=== PATIENT | male | born 1965 | race Caucasian/White ===

== ENCOUNTER 2016-04-21 15:29 | Emergency (ER) | payer MEDICARE, OTHER ==
--- NOTE | 2016-04-21 16:07 | ED ---
General Adult HPI - General Chief complaint: Back Pain/Injury Stated complaint: Fall/Back Pain Time Seen by Provider: 04/21/16 15:44 Source: patient, RN notes reviewed Mode of arrival: ambulatory Limitations: no limitations - History of Present Illness Initial comments: Is a 50-year-old male presents with lumbar back pain after a fall today. Patient states he slipped on ice and landed on the right side lower back. Patient states he has chronic back pain from past surgeries, but states the pain in his lumbar spine has been worse after today's fall. Patient denies any change in bowel or bladder function, loss of sensation to the saddle area or numbness/tingling/weakness/radicular pain to the bilateral lower extremities. Patient states he had a sharp pain along the lateral aspect of the right thigh when he fell but this has resolved. Patient is able to ambulate. patient denies hip pain. Patient states he is already on Percocet 4 times per day and this has not helped the pain. Patient denies any recent fever, chills, shortness breath, chest pain, abdominal pain, nausea/vomiting/diarrhea, hematuria, headache, or visual changes, or any other complaints. - Related Data Home Medications Medication Instructions Recorded Confirmed oxyCODONE-APAP 10-325MG [Percocet 1 tab PO QID 04/21/16 04/21/16 10-325 mg] Allergies Allergy/AdvReac Type Severity Reaction Status Date / Time codeine Allergy Itching Verified 04/21/16 15:39 Review of Systems ROS Statement: Those systems with pertinent positive or pertinent negative responses have been documented in the HPI. ROS Other: All systems not noted in ROS Statement are negative. Past Medical History Additional Past Medical History / Comment(s): vitamin d deficiency, chronic back pain History of Any Multi-Drug Resistant Organisms: None Reported Additional Past Surgical History / Comment(s): spinal fusion Past Psychological History: No Psychological Hx Reported Smoking Status: Current every day smoker Past Alcohol Use History: None Reported Past Drug Use History: None Reported General Exam - General Exam Comments Initial Comments: General: The patient is awake and alert, in no distress, and does not appear acutely ill. Neck: The neck is supple, there is no tenderness or JVD. No cervical midline tenderness. Cardiovascular: There is a regular rate and rhythm. No murmur, rub or gallop is appreciated. Respiratory: Lungs are clear to auscultation, respirations are non-labored, breath sounds are equal. No wheezes, stridor, rales, or rhonchi. Musculoskeletal: There is tenderness to palpation over the lumbar spinous processes right-sided sacral area and to the right side lumbar paraspinal muscles. There is no tenderness to palpation of the right hip Full range of motion, strength 5/5 and Sensation intact. Radial pulses 2+ bilaterally. Capillary refill is less than 2 seconds. Neurological: A&O x 3. CN II-XII intact, There are no obvious motor or sensory deficits. Coordination appears grossly intact. Speech is normal. Skin: Skin is warm and dry and no rashes or lesions are noted. Psychiatric: Normal mood and affect. Limitations: no limitations Course Vital Signs 04/21/16 15:33 Temperature 98.0 F Pulse Rate 100 Respiratory 20 Rate Blood Pressure 164/97 O2 Sat by Pulse 100 Oximetry Medical Decision Making - Medical Decision Making is a 50-year-old male presents with acute exacerbation of chronic back pain after a fall. On physical exam patient is neurologically intact and there is tenderness to palpation over the lumbar spinous processes right-sided sacral area and to the right side lumbar paraspinal muscles. There is no tenderness to palpation of the right hip. Full range of motion, strength 5/5 and Sensation intact. Radial pulses 2+ bilaterally. Capillary refill is less than 2 seconds. X-rays of the lumbar spine and sacrum/coccyx were done and review showing: #1 Postsurgical changes of L2 through L5 posterior and interbody fusion without evident complication. No vertebral compression collapse. #2 no angulated or displaced sacrococcygeal fracture. Discussed results with patient. Discussed that the patient wiill receive Toradol and Norflex in the EC today. Discussed over the counter ibuprofen or Aleve in addition to his normal pain medication of Percocet. Discussed return parameters.Discussed that patient should follow up with PCP in one to 2 days or return to the [facility] for any worsening symptoms or for any further concerns. Patient was receptive to this plan and patient will be discharged home. Disposition Clinical Impression: Acute exacerbation of chronic low back pain, Fall Disposition: HOME SELF-CARE Condition: Good Instructions: Acute Low Back Pain (ED) Additional Instructions: Please use medication as discussed. Please use warm heating pads to the area. Please follow-up with family doctor in the next 2 days of symptoms have not improved. Please return to emergency room if the symptoms increase or worsen or for any other concerns. Time of Disposition: 16:40
--- NOTE | 2016-04-21 16:30 | XR ---
EXAMINATION TYPE: XR lumbar spine 2 or 3V, Three-view sacrum and coccyx DATE OF EXAM: 04/21/2016 4:18 PM COMPARISON: NONE HISTORY: 50-year-old male with pain after slip and fall FINDINGS: Lumbar spine: Postsurgical changes of L2-L5 posterior and interbody fusion. There is mild degenerative disc intersp colleen narrowing above the fusion at L1-L2. The orthopedic hardware remains uncomplicated in appearance. Vertebral body heights are preserved. No retropulsion of the interbody devices. Sacrum coccyx: SI joints appear symmetric and intact. Small delineation to the arcuate lines of the sacrum. Pubic sy mphysis is congruent and intact. No displaced or angulated sacral or coccygeal fracture. IMPRESSION: 1. Postsurgical changes of L2-L5 posterior and interbody fusion without evident complication. No vert ebral compression collapse. 2. No angulated or displaced sacrococcygeal fracture.
[2016-04-21] MEDS ORDERED: ORPHENADRINE 30 MG/ML 2 ML VIAL IM STA (16:36)
[2016-04-21] MEDS ORDERED: KETOROLAC 60 MG/2 ML VIAL IM STA (16:36)
[2016-04-21 16:58] VITALS: BP 158/89; PULSE 95; RESP 18; TEMP 98.1
== END 2016-04-21 16:56 | disposition home or self-care (01) ==
LOC: EC 15:29
DX: G89.29 Other chronic pain (principal); M54.5 Low back pain; F17.200 Nicotine dependence, unspecified, uncomplicated; W00.0XXA Fall on same level due to ice and snow, initial encounter; Z79.899 Other long term (current) drug therapy; Z88.5 Allergy status to narcotic agent
CPT/HCPCS: 72100; 72220; 96372 ×2; 99284; J2360; J1885

== ENCOUNTER 2018-01-07 06:35 | Day surgery (SDC) | payer MEDICARE, OTHER ==
[2018-01-06 09:25] VITALS: BMI 28.8
[~2018-01-07 06:35] MED LIST: DEXAMETHASONE SOD PHOSPHATE 10 MG/ML 1 ML VIAL IV ONE; HEPARIN SODIUM,PORCINE 5,000 UNIT/ML 1 ML VIAL SQ ONE; LIDOCAINE 1% 20 ML VIAL (10MG/ML) FOR IV START INTRADERMA PRN; MIDAZOLAM 2 MG/2 ML VIAL IV PRN; ONDANSETRON 4 MG/2 ML VIAL IVP ONE; SCOPOLAMINE 1.5MG/72HR PATCH TRANSDERM ONE; ceFAZolin IN SWFI 2 GM/20 ML SYRINGE IVP ONE
[2018-01-07] MEDS: LACTATED RINGERS 1,000 ML IV SCH ×2 (07:23→07:30)
--- NOTE | 2018-01-07 07:53 | P.GSHP ---
History of Present Illness H&P Date: 01/07/18 Chief Complaint: Left inguinal hernia This a 52-year-old male who's had complaints of left we will pain. Patient was seen in the office evaluated and found have a left inguinal hernia. Patient rents today for laparoscopic robotic-assisted repair. Past Medical History Past Medical History: Skin Disorder Additional Past Medical History / Comment(s): chronic back pain, rosacea History of Any Multi-Drug Resistant Organisms: MRSA Date of last positivie culture/infection: 2002 MDRO Source:: left thigh Past Surgical History: Back Surgery Additional Past Surgical History / Comment(s): spinal fusion Past Anesthesia/Blood Transfusion Reactions: No Reported Reaction Smoking Status: Current every day smoker - Past Family History Sister(s) Family Medical History: Cancer Medications and Allergies Home Medications Medication Instructions Recorded Confirmed Type Vitamin B Complex 1 each PO DAILY 01/06/18 01/07/18 History Allergies Allergy/AdvReac Type Severity Reaction Status Date / Time codeine Allergy Itching Verified 01/07/18 07:14 Surgical - Exam Vital Signs Temp Pulse Resp BP Pulse Ox 97.4 F L 69 18 136/81 100 01/07/18 07:12 01/07/18 07:12 01/07/18 07:12 01/07/18 07:12 01/07/18 07:12 - General well developed, no distress - Eyes PERRL - ENT normal pinna - Neck no masses - Respiratory normal expansion - Cardiovascular Rhythm: regular - Abdomen Abdomen: soft, non tender Hernia: inguinal (Reducible left inguinal hernia) Assessment and Plan Assessment: Left inguinal hernia. We'll perform laparoscopic robotic-assisted repair.
[2018-01-07] MEDS ORDERED: NEOSTIGMINE 1 MG/ML 10 ML VIAL ONE (08:02)
[2018-01-07] MEDS ORDERED: fentaNYL (PF) 50 MCG/ML 2 ML AMP ONE (08:02)
[2018-01-07] MEDS ORDERED: LIDOCAINE 1% INJ 10MG/ML (20 ML MDV) ONE (08:02)
[2018-01-07] MEDS ORDERED: ROCURONIUM BROMIDE 10 MG/ML 10 ML VIAL IV ONE (08:02)
[2018-01-07] MEDS ORDERED: GLYCOPYRROLATE 0.2 MG/ML 2 ML VIAL ONE (08:02)
[2018-01-07] MEDS ORDERED: SUCCINYLCHOLINE CHLORIDE 100 MG/5 ML SYR IV ONE (08:02)
[2018-01-07] MEDS ORDERED: PHENYLEPHRINE-0.9% NACL SYG 1 MG/10 ML SYRINGE ONE (08:02)
[2018-01-07] MEDS ORDERED: ePHEDrine SULFATE/0.9% NACL/PF 50 MG/5 ML SYRINGE IV ONE (08:02)
[2018-01-07] MEDS ORDERED: PROPOFOL 10 MG/ML 20 ML VIAL IV ONE (08:02)
[2018-01-07] MEDS ORDERED: HYDROmorphone (PF) 1 MG/ML ONE (08:02)
[2018-01-07] MEDS ORDERED: MIDAZOLAM 2 MG/2 ML VIAL ONE (08:02)
[2018-01-07] MEDS ORDERED: KETOROLAC 30 MG/ML 1 ML VIAL ONE (08:02)
[2018-01-07] MEDS ORDERED: BUPIVACAIN-EPI 0.25%-1:200,000 30 ML VIAL SQ ONE (08:54)
[2018-01-07 09:41] VITALS: TEMP 97.3
[2018-01-07] MEDS: fentaNYL (PF) 50 MCG/ML 2 ML AMP IVP ONE ×2 (09:41→09:46)
[2018-01-07] MEDS: HYDROmorphone 0.5 MG/0.5 ML SYRINGE IVP PRN ×2 (09:51→09:57)
[2018-01-07 10:09] VITALS: RESP 18
[2018-01-07] MEDS ORDERED: HYDROcodone/APAP 7.5-325MG 1 EACH TAB PO ONE (10:40)
[2018-01-07 11:44] VITALS: BP 130/82; PULSE 76
--- NOTE | 2018-01-17 13:00 | P.OP ---
Date of Procedure: 01/07/18 Preoperative Diagnosis: Left inguinal hernia Postoperative Diagnosis: Left internal hernia Procedure(s) Performed: Laparoscopic robotic-assisted repair of left inguinal hernia Anesthesia: EVONNE Surgeon: Lane Higginbotham Estimated Blood Loss (ml): 5 Pathology: none sent Condition: stable Disposition: PACU Description of Procedure: The patient was placed on the operating table in the supine position. The patient received general anesthesia. The patient's abdomen was prepped and draped in usual sterile fashion. The skin was anesthetized 1% local Xylocaine at the incision sites. Using an 11 blade a skin incision was made at the umbilicus. The fascia was grasped with a [place] and then the peritoneal cavity was entered with the Veress needle. Position of the Veress needle was confirmed with a positive drop test. After adequate insufflation a 5 mm trocar was placed into the peritoneal cavity. The Laparoscope was placed the peritoneal cavity. And a robotic 8 mm trocar was placed in the right lateral position and then another 8 mm robotic trochars placed in the left lateral position. The original 5 mm trocar was exchanged for a 12 mm trocar. The patient was placed in reverse Trendelenburg and then the patient was docked to the robot. Next the peritoneum over top of the hernia was incised and then using blunt and sharp dissection and electrocautery the hernia sac was dissected free from the floor of the inguinal canal. The hernia sac was completely reduced into the peritoneal cavity. And then using the [employer] instructor mesh the hernia was repaired. The peritoneum was then sutured with 2-0V lock suture. The patient was then undocked the robot. The needle was withdrawn from the peritoneal cavity. The umbilical trocar site was closed with 0 Ethibond suture. The skin was closed interrupted 3-0 Monocryl suture. Dermabond dressing was applied. Patient was sent to recovery in stable condition.
== END 2018-01-07 12:00 | disposition home or self-care (01) ==
LOC: OR 06:35
PROVIDERS: ATTEND Surgery
DX: K40.90 Unilateral inguinal hernia, without obstruction or gangrene, not specified as recurrent (principal); L71.9 Rosacea, unspecified; M54.9 Dorsalgia, unspecified; G89.29 Other chronic pain; F17.210 Nicotine dependence, cigarettes, uncomplicated; Z86.14 Personal history of Methicillin resistant Staphylococcus aureus infection; Z98.1 Arthrodesis status; Z88.5 Allergy status to narcotic agent
CPT/HCPCS: 49650; C1781; J2250; J1644; J1100; J2710; J2405; J2001; J3010; J1885; J1170 ×2; J2370; J0330; J2704; J0690

== ENCOUNTER 2018-01-13 11:45 | Emergency (ER) | payer MEDICARE, OTHER ==
[2018-01-13 11:55] VITALS: RESP 18; TEMP 98.1
[2018-01-13] MEDS ORDERED: MORPHINE SULFATE 2 MG/ML SYRINGE IM STA (13:02)
--- NOTE | 2018-01-13 13:22 | ED ---
Recheck HPI - General Chief Complaint: Recheck/Abnormal Lab/Rx Stated Complaint: post surg pain Time Seen by Provider: 01/13/18 12:47 Source: patient Mode of arrival: ambulatory Limitations: no limitations - History of Present Illness Initial Comments: 52-year-old male presenting for chief complaint of bruising of the testicles and mild swelling. Patient states that on 01/07/2018 he had a left-sided inguinal hernia repair performed Laproscopically by Dr. Higginbotham. Patient states that later on Saturday he noticed blackening of the base the penis and testicles as well as moderate discomfort in testicles patient states that he presented to the emergency department Saturday for continued discomfort in the testicles however he left without being seen due to wait time. Patient does have an appointment tomorrow with Dr. Higginbotham in office, he was told to go to his primary care provider for evaluation if he had concerns. Patient states that the pain has been steady and continuous dull aching since Saturday. He's been taking [place] 7.5 for pain management which is helped minimally. Patient did state that the darkening has been improving since yesterday. Patient denies any abdominal pain, nausea, vomiting, fever, chills, redness at the surgical sites, pain out of proportion. Patient states he thinks this may be a normal finding for one make sure she presents today for evaluation. Patient denies any recent fever, chills, shortness of breath, chest pain, back pain, abdominal pain, nausea or vomiting, numbness or tingling, dysuria or hematuria, constipation or diarrhea, headaches or visual changes, or any other complaints. - Related Data Home Medications Medication Instructions Recorded Confirmed Vitamin B Complex 1 cap PO DAILY 01/06/18 01/13/18 Previous Rx's Medication Instructions Recorded Docusate [Colace] 100 mg PO BID #20 capsule 01/07/18 HYDROcodone/APAP 7.5-325MG [[place] 1 tab PO Q4H PRN 3 Days #18 tab 01/07/18 7.5-325] Allergies Allergy/AdvReac Type Severity Reaction Status Date / Time codeine Allergy Itching Verified 01/13/18 13:06 Review of Systems ROS Statement: Those systems with pertinent positive or pertinent negative responses have been documented in the HPI. ROS Other: All systems not noted in ROS Statement are negative. Constitutional: Denies: fever, chills ENT: Denies: ear pain, throat pain Respiratory: Denies: cough, dyspnea, wheezes, hemoptysis, stridor Cardiovascular: Denies: chest pain, palpitations Gastrointestinal: Denies: abdominal pain, nausea, vomiting, diarrhea, constipation Genitourinary: Reports: testicular pain (bruising and swelling). Denies: urgency, dysuria, frequency, hematuria Skin: Denies: rash, lesions Neurological: Denies: headache, weakness, numbness, paresthesias, confusion, abnormal gait Past Medical History Past Medical History: Skin Disorder Additional Past Medical History / Comment(s): chronic back pain, rosacea History of Any Multi-Drug Resistant Organisms: MRSA Date of last positivie culture/infection: 2002 MDRO Source:: left thigh Past Surgical History: Back Surgery, Hernia Repair Additional Past Surgical History / Comment(s): spinal fusion Past Anesthesia/Blood Transfusion Reactions: No Reported Reaction Past Psychological History: No Psychological Hx Reported Smoking Status: Current every day smoker Past Alcohol Use History: None Reported Past Drug Use History: None Reported - Past Family History Sister(s) Family Medical History: Cancer General Exam - General Exam Comments Initial Comments: General: The patient is awake and alert, in no distress, and does not appear acutely ill. Eye: Pupils are equal, round and reactive to light, extra-ocular movements are intact. No nystagmus. There is normal conjunctiva bilaterally. No signs of icterus. Ears, nose, mouth and throat: There are moist mucous membranes and no oral lesions. Neck: The neck is supple, there is no tenderness or JVD. Cardiovascular: There is a regular rate and rhythm. No murmur, rub or gallop is appreciated. Respiratory: Lungs are clear to auscultation, respirations are non-labored, breath sounds are equal. No wheezes, stridor, rales, or rhonchi. Gastrointestinal: 4 small 2cm incisions, non erythematous, warm to touch no drainage. No signs of infection. Soft, non-distended, non-tender abdomen without masses or organomegaly noted. There is no rebound or guarding present. Bowel sounds are unremarkable. SEE EXAM. Musculoskeletal: Normal ROM, no tenderness. Strength 5/5. Sensation intact. Pulses equal bilaterally 2+. Neurological: A&O x 3. CN II-XII intact, There are no obvious motor or sensory deficits. Coordination appears grossly intact. Speech is normal. Skin: Skin is warm and dry and no rashes or lesions are noted. Psychiatric: Cooperative, appropriate mood & affect, normal judgment. Limitations: no limitations exam: Present: testicular tenderness (mild testicular tenderness to palpation ), scrotal swelling (very mild scrotal swelling), vertical testicular lie, circumcision, other (ecchymosis of testicular b/l). Absent: urethral discharge External exam: Present: ecchymosis, other. Absent: lesions, lacerations Expanded Male exam: Absent: phimosis, paraphimosis, penile swelling, lesions exam: Testicular Tenderness: Left, Right (mild), Testicular Swelling: Left, Right (mild), Cremasteric Reflex Present: Left, Right Course Vital Signs 01/13/18 01/13/18 01/13/18 11:51 13:16 15:03 Temperature 98.1 F Pulse Rate 106 H 89 76 Respiratory 18 18 18 Rate Blood Pressure 131/81 132/95 143/90 O2 Sat by Pulse 97 96 97 Oximetry Medical Decision Making - Medical Decision Making PE consistent with normal postoperative changes from inguinal hernia repair. No concern for torsion, surgical site infection at this time. Pt appears comfortable and stated that he felt it probably was a normal finding he just wanted to be evaluated just in case. Pt was given 2mg morphine IM stating he has tolerated it in the past and because he states norco does not help with discomfort much. Testicular US WNL no evidence of torsion/hematoma there is hydrocele this most likely postoperative. Case discussed with Dr. Canela who agrees with impression. Pt was instructed to f/u with both primary care provider and Dr. Higginbotham as scheduled tmrw. If pt has worsening discoloration, fever, chills, erythema or worsening/pain out of proportion he is to return to the ED. patient agrees with plan. He verbalized understanding of return parameters. Patient discharged in stable condition. Disposition Clinical Impression: Hydrocele, acquired, Bruise of testicle, nontraumatic Disposition: HOME SELF-CARE Condition: Good Instructions: Hydrocele (ED) Additional Instructions: Please use home medication as discussed. Please follow-up as scheduled with surgeon tomorrow and primary care provider in the 2-3 days. Please return to emergency room if the symptoms increase or worsen or for any other concerns. Is patient prescribed a controlled substance at d/c from ED?: No Referrals: Jagdish Han DO [Primary Care Provider] - 1-[address] Higginbotham MD [STAFF PHYSICIAN] - 1-2 days Time of Disposition: 15:10
--- NOTE | 2018-01-13 14:54 | US ---
EXAMINATION TYPE: US scrotum with doppler. Grayscale and color Doppler Duplex imaging performed of t bernadette scrotum. DATE OF EXAM: 01/13/2018 COMPARISON: NONE CLINICAL HISTORY: Pain. EXAM MEASUREMENTS: TESTICLES: Right Testicle: 4.5 x 2.1 x 3.0 cm Left Testicle: 4.1 x 1.9 x 2.7 cm EPIDIDYMIS HEAD: Right Epididymis: 1.2 cm, small cyst noted at .1cm Left Epididymis: 1.1 cm Doppler performed to assess for testicular vascularity; good bilateral color flow and waveforms are s een. There is no evidence of testicular torsion. Presence of hydroceles: on left measuring 3.5 x 1.5 x 2.0cm Presence of varicoceles: no Very tiny epididymal cysts present on the right measuring 0.1 cm. IMPRESSION: 1. Left-sided hydrocele.
[2018-01-13 15:05] VITALS: BP 143/90; PULSE 76
== END 2018-01-13 15:15 | disposition home or self-care (01) ==
LOC: EC 11:45
DX: N43.3 Hydrocele, unspecified (principal); F17.200 Nicotine dependence, unspecified, uncomplicated; Z88.5 Allergy status to narcotic agent; Z86.14 Personal history of Methicillin resistant Staphylococcus aureus infection; Z98.890 Other specified postprocedural states
CPT/HCPCS: 93975; 76870; 99283; 96372; J2270

== ENCOUNTER → 2018-05-30 | Outpatient (CLI) | payer MEDICARE, OTHER ==
--- NOTE | 2018-05-30 17:42 | CT ---
EXAMINATION TYPE: CT pelvis w con DATE OF EXAM: 05/30/2018 COMPARISON: None HISTORY: inguinal hernia, left sided groin pain CT DLP: 741.2 mGycm Automated exposure control for dose reduction was used. CONTRAST: Performed with IV Contrast, patient injected with 100 mL of Isovue 300. FINDINGS: There is a small fat-containing left inguinal hernia. Tiny fat-containing right inguinal hernia. No i nflammatory changes. Bladder has a normal appearance. No free fluid. Diverticulosis of the colon. Visualized bowel gas pat tern nonspecific. Postsurgical change and degenerative change vertebral column. Aorta of normal caliber with atherosclerotic changes. Bilateral foraminal encroachment L4-5 and L5-S1 . IMPRESSION: SMALL FAT-CONTAINING INGUINAL HERNIA WITH NO INFLAMMATORY CHANGES. DEGENERATIVE AND POSTSURGICAL CHANGES INVOLVING THE VERTEBRAL COLUMN WITH FORAMINAL ENCROACHMENT INVO LVING THE LOWER LUMBAR SPINE.
== END | disposition home or self-care (01) ==
LOC: RADCTMAIN 15:17
PROVIDERS: ATTEND Surgery
DX: K40.90 Unilateral inguinal hernia, without obstruction or gangrene, not specified as recurrent (principal)
CPT/HCPCS: 72193; Q9967

== ENCOUNTER 2018-06-19 06:19 | Day surgery (SDC) | payer MEDICARE, OTHER ==
[2018-06-13 17:19] VITALS: BMI 28.4
[~2018-06-19 06:19] MED LIST changes: +LACTATED RINGERS 1,000 ML IV SCH; -MIDAZOLAM 2 MG/2 ML VIAL IV PRN; +fentaNYL (PF) 50 MCG/ML 2 ML AMP IV PRN
[2018-06-19] MEDS ORDERED: fentaNYL (PF) 50 MCG/ML 2 ML AMP IV ONE (07:14)
[2018-06-19] MEDS ORDERED: MIDAZOLAM 2 MG/2 ML VIAL IV ONE (07:14)
--- NOTE | 2018-06-19 07:53 | P.GSHP ---
History of Present Illness H&P Date: 06/19/18 Chief Complaint: Recurrent incarcerated left inguinal hernia This is a 53-year-old male who presents today for open repair of recurrent incarcerated left internal hernia. Patient is has developed a tender mass in his left groin. He has a previous history of inguinal hernia repair. Past Medical History Past Medical History: Musculoskeletal Disorder, Skin Disorder Additional Past Medical History / Comment(s): Chronic back pain. MINOR Rosacea. REOCCURING LT ING HERNIA. History of Any Multi-Drug Resistant Organisms: MRSA Date of last positivie culture/infection: 2002 MDRO Source:: left thigh Past Surgical History: Back Surgery, Hernia Repair Additional Past Surgical History / Comment(s): Spinal fusion. LT ING HERNIA 01/07/18. Past Anesthesia/Blood Transfusion Reactions: No Reported Reaction Smoking Status: Current every day smoker - Past Family History Sister(s) Family Medical History: Cancer Medications and Allergies Home Medications Medication Instructions Recorded Confirmed Type Acetaminophen [Tylenol] 325 - 650 mg PO Q4H PRN 06/13/18 06/19/18 History Vitamin B-1 (Unknown Dose) 1 tab PO DAILY 06/13/18 History Allergies Allergy/AdvReac Type Severity Reaction Status Date / Time codeine Allergy Itching Verified 06/13/18 17:04 Surgical - Exam Vital Signs Temp Pulse Resp BP Pulse Ox 97.8 F 69 16 116/77 97 06/19/18 06:59 06/19/18 06:59 06/19/18 06:59 06/19/18 06:59 06/19/18 06:59 - General well developed, well nourished, no distress - Eyes PERRL - ENT normal pinna - Neck no masses - Respiratory normal expansion - Cardiovascular Rhythm: regular - Abdomen Abdomen: soft, non tender Hernia: inguinal (2 cm recurrent inguinal hernia left) Assessment and Plan Assessment: Recurrent incarcerated left inguinal hernia. We'll perform open repair.
[2018-06-19] MEDS ORDERED: PROPOFOL 10 MG/ML 20 ML VIAL IV ONE (07:58)
[2018-06-19] MEDS ORDERED: fentaNYL (PF) 50 MCG/ML 2 ML AMP ONE (07:58)
[2018-06-19] MEDS ORDERED: ROPIVACAINE 5 MG/ML 30 ML VIAL ONE (07:58)
[2018-06-19] MEDS ORDERED: ROCURONIUM BROMIDE 10 MG/ML 10 ML VIAL IV ONE (07:58)
[2018-06-19] MEDS ORDERED: HYDROmorphone (PF) 1 MG/ML ONE (07:58)
[2018-06-19] MEDS ORDERED: KETOROLAC 30 MG/ML 1 ML VIAL ONE (07:58)
[2018-06-19] MEDS ORDERED: MIDAZOLAM 2 MG/2 ML VIAL ONE (07:58)
[2018-06-19] MEDS ORDERED: LIDOCAINE 1% INJ 10MG/ML (20 ML MDV) ONE (07:58)
[2018-06-19] MEDS ORDERED: NEOSTIGMINE 1 MG/ML 10 ML VIAL ONE (07:58)
[2018-06-19] MEDS ORDERED: GLYCOPYRROLATE 0.2 MG/ML 2 ML VIAL ONE (07:58)
--- NOTE | 2018-06-19 08:01 | P.ONQ ---
Anesthesiology Proc Note - PNB - Peripheral Nerve Block Performed Left Transversus Abdominis Single Time Out Performed: Yes Procedure Start Time: 07:15 Procedure Stop Time: 07:20 Indication: Acute Post-Operative Pain, Analgesia, Requested by physician Sedation Type: Sedate with meaningful contact maintained Preparation: Sterile Prep Position: Supine Catheter: None Needle Types: On-Q Needle Size: 50mm (2") Needle Gauge: 20 Technique: Ultrasound Injectate: 0.5% Ropivacaine (see comment for volume) Blood Aspirated: No Pain Paresthesia on Injection Noted: No Resistance on Injection: Normal Events: Uneventful and Well Tolerated (20 ml total solution)
[2018-06-19] MEDS ORDERED: BUPIVACAINE (PF) 0.25% 30 ML VIAL SQ ONE (08:17)
--- NOTE | 2018-06-19 08:47 | P.OP ---
Date of Procedure: 06/19/18 Preoperative Diagnosis: Recurrent left inguinal hernia Postoperative Diagnosis: Recurrent left inguinal hernia Procedure(s) Performed: Repair of recurrent left inguinal hernia Anesthesia: EVONNE Surgeon: Lane Higginbotham Estimated Blood Loss (ml): 5 Pathology: other (Left cord lipoma) Condition: stable Disposition: PACU Description of Procedure: MDESCRIPTION OF PROCEDURE: The patient was placed in the supine position after receiving adequate anesthesia. The patient's left groin was prepped and draped in the usual sterile fashion. A standard hernia incision was made and the subcutaneous tissues were divided with electrocautery. The fascia of the external oblique was exposed. A ciarra the fascia was made with #15 blade. The fascia was then opened with pair of Metzenbaum scissors. A Weitlaner retractor was placed in the wound and the cord structures were grasped and dissected free from the inguinal canal. A rubber [place] drain was placed around the cord structures. The hernia sac was seen medial to the cord. The hernial sac was seen on the anterior-medial portion of the cord and this was dissected free from the cord. There was a lipoma that was dissected free from the cord. This was sent to pathology. The hernia sac was then invaginated to the peritoneal cavity. Using blunt finger dissection, the preperitoneal space was dissected and then the Prolene hernial mesh plug was placed into the prepared space. The inferior leaf was expanded. The superior leaf was secured to the pubic tubercle using 2-0 Prolene suture. The lateral portion of the superior leaf was incised and cords tied and secured to the transversalis fascia using 2-0 Prolene suture. Fascia of the external oblique was then closed using #0 Vicryl suture. The [place] drain was removed. The Dennis's fascia was then closed with 3-0 Vicryl suture and skin was closed with 3-0 Monocryl suture. The patient tolerated the procedure well.
[2018-06-19 09:01] VITALS: TEMP 97.9
[2018-06-19 09:33] VITALS: RESP 16
[2018-06-19] MEDS ORDERED: HYDROcodone/APAP 7.5-325MG 1 EACH TAB PO ONE (10:00)
[2018-06-19 10:25] VITALS: BP 112/79; PULSE 66
== END 2018-06-19 10:48 | disposition home or self-care (01) ==
LOC: OR 06:19
PROVIDERS: ATTEND Surgery
DX: K40.31 Unilateral inguinal hernia, with obstruction, without gangrene, recurrent (principal); D17.6 Benign lipomatous neoplasm of spermatic cord; G89.29 Other chronic pain; M54.9 Dorsalgia, unspecified; Z98.1 Arthrodesis status; Z86.14 Personal history of Methicillin resistant Staphylococcus aureus infection; F17.210 Nicotine dependence, cigarettes, uncomplicated; Z88.5 Allergy status to narcotic agent
CPT/HCPCS: 64486; 88304; 49521; C1781; J2250; J1644; J1100; J2710; J2405; J2001; J3010; J1885; J1170; J2795; J2704; J0690

== ENCOUNTER → 2019-01-23 | Outpatient (CLI) | payer MEDICARE, OTHER ==
--- NOTE | 2019-01-24 14:56 | CT ---
EXAMINATION TYPE: CT abdomen pelvis w con DATE OF EXAM: 01/23/2019 COMPARISON: CT pelvis 05/30/2018 HISTORY: Pt had LT side inguinal hernia sx January 2018. Pain increased, second sx done in June. Rah e symptoms currently. Suspect diverticulitis CT DLP: 1007.70 mGycm Automated exposure control for dose reduction was used. TECHNIQUE: Helical acquisition of images from the lung bases through the pelvis have been completed. CONTRAST: Performed without Oral Contrast and with IV Contrast, patient injected with 100 mL of Isovue 300. FINDINGS: LUNG BASES: No significant abnormality is appreciated. AORTA: No significant abnormality is appreciated. LIVER/GB: Hypodense focus within the posterior right lobe of the liver measures 1 cm and is of questi onable clinical significance. Gallbladder is normal.. PANCREAS: No significant abnormality is seen. SPLEEN: No significant abnormality is seen. ADRENALS: No significant abnormality is seen. KIDNEYS: No significant abnormality is seen. REPRODUCTIVE ORGANS: Prostate is enlarged and shows associated calcifications. BOWEL: Extensive diverticular change present in the sigmoid colon as on prior.. FREE AIR: No Free Air visible. ASCITES: None visible. PELVIC ADENOPATHY: None visualized. RETROPERITONEAL ADENOPATHY: No Retroperitoneal Adenopathy visible. URINARY BLADDER: No significant abnormality is seen. OSSEOUS STRUCTURES: No significant interval change is seen. Postop changes are noted to the lumbar s pine. IMPRESSION: DIVERTICULOSIS. PROBABLE HEPATIC CYST. POSTOP CHANGES.
== END | disposition home or self-care (01) ==
LOC: RADCTMAIN 17:37
PROVIDERS: ATTEND Surgery Plastic and Reconstructive Surgery
DX: K57.30 Diverticulosis of large intestine without perforation or abscess without bleeding (principal)
CPT/HCPCS: 74177; Q9967

== ENCOUNTER → 2019-03-03 | Outpatient (CLI) | payer MEDICARE, OTHER ==
[2019-03-03 14:11] VITALS: BP 142/100; PULSE 81; RESP 16
--- NOTE | 2019-03-03 15:15 | P.PAINCN ---
History of Present Illness - Reason for Consult Consult date: 03/03/19 - History of Present Illness This is an initial consultation visit for this 53 years old male with a chronic history of severe left groin pain, patient reporte that he had robotic hernia repair on the left side, and he continued to have severe left-sided groin pain, and in June 2018 he had open left sided hernia repair, and he continued to have pain after the surgery, the pain is constant localized in the left and groin. Above the testicle, it has not radiated to the leg , not radiated to the abdomen, he denies any fever or night sweats, he denies any redness or discharge from the groin, he denies any motor or sensory deficit, he feels his pain is localized in one spot with a diameter around 2 inches. Past Medical History Past Medical History: Musculoskeletal Disorder, Skin Disorder Additional Past Medical History / Comment(s): Chronic back pain. MINOR Rosacea. constant left groin pain since 2nd inguinal hernia surg. History of Any Multi-Drug Resistant Organisms: MRSA Year Discovered:: 2002 MDRO Source:: left thigh Past Surgical History: Back Surgery, Hernia Repair Additional Past Surgical History / Comment(s): Spinal fusion. LT ING HERNIA 01/07/18, 2nd robotic inguinal hernia surg. June 2018 Past Anesthesia/Blood Transfusion Reactions: No Reported Reaction Past Psychological History: No Psychological Hx Reported Smoking Status: Smoker, current status unknown Past Alcohol Use History: None Reported Additional Past Alcohol Use History / Comment(s): smokes < 1/2 PPD, started smoking age 20 Past Drug Use History: None Reported - Past Family History Sister(s) Family Medical History: Cancer Medications and Allergies Home Medications Medication Instructions Recorded Confirmed Type Acetaminophen [Tylenol] 325 - 650 mg PO Q4H PRN 06/13/18 03/03/19 History Vitamin B-1 (Unknown Dose) 1 tab PO DAILY 06/13/18 03/03/19 History Docusate [Colace] 100 mg PO BID #20 capsule 06/19/18 03/03/19 Rx Allergies Allergy/AdvReac Type Severity Reaction Status Date / Time codeine Allergy Itching Verified 03/03/19 14:01 Physical Exam Vitals: Vital Signs Pulse Resp BP Pulse Ox 03/03/19 14:01 81 16 142/100 97 REVIEW OF ORGAN SYSTEMS: CONSTITUTIONAL: No fevers or chills. No recent weight loss. EYES: denies troubles with vision. HEENT: No difficulties with hearing. No nosebleeds. No difficulty swallowing. RESPIRATORY: Denies any troubles with breathing or dyspnea on exertion. CARDIOVASCULAR: Denies any chest pain, palpitations, or recent heart attacks. GASTROINTESTINAL: Denies fatty food intolerance. Has change in bowel habits and gas bloat. GENITOURINARY: Denies any blood in urine. Has increased urinary frequency. NEUROLOGICAL: No numbness or tingling in the lower extremity. No seizure disorders or headaches. MUSCULOSKELETAL: Has left the groin pain. SKIN:no skin cancer. No rash. PSYCHIATRIC: Denies current depression or suicidal thoughts. ENDOCRINE: Denies current thyroid disorders. Denies any blood sugar glucose intolerance. HEME/LYMPHATIC: Denies any lumps and bumps around the neck. History of deep venous thrombosis. ALLERGY/IMMUNOLOGY: No immunoglobulin therapy. No immune deficiencies. BREAST: Denies current breast lumps, pain or nipple discharge. Physical Examinations : Constitutiona : Cooperative , not in acute distress . HEENT : nech : supple , no Lymphadenopathy , normal thyroid size . : eyes no ptosis , no icterus, no photophobia . : ENT normal of hearing , normal oropharynx , no Thrush . Respiratory : Chest clear to auscultations Bilaterally , no wheezing , no Rhonchi . Cardiovascula : regular rate and rhythem , S1 , S2 , no S3 , no S4. Gastrointestina : abdomen soft no tenderness , bowel sounds , no organomegally . Severe tenderness over the left genitofemoral nerve area . There is no discharge ,no erythema ,no swelling at the location of the left inguinal area Genitourinary : Defferred . neurologic : Cranial nerve II to XII intact , no focal neurological deffecit . psychatric : alert , oriented X 3 , appropriate affect , intact judgment and insight . Lymphatic : no Lymphadenopathy . musculoskeltal : Lumber spine moter stegnth lower extremities ,thigh and legs 5/5 Right side , 5/5 Left side Results Comments: Description of the abdomen and pelvis reviewed Assessment and Plan Plan: Assessment and plan= left genitofemoral neuralgia versus neuroma formation in the left genitofemoral area versus scar tissue on the left inguinal hernia Patient could benefit from left genitofemoral nerve block under ultrasound guided, procedure risk and benefits and alternatives discussed with the patient he agreed with the preceding Time with Patient: Greater than 30 PQRS Measure Charge Sheet Measure #130: Documentation of Current Meds in Medical Chart: Patient's medications documented in chart Measure #226: Tobacco Use: Screen & Cessation Intervention: Pt screened for tobacco use AND intervention given Measure #111: Pneumonia Vaccination: Pneumococcal vaccine NOT administered or previously given Measure #47: Advance Care Plan: Advance care planning discussed & documented, pt chose/unable to give Measure #412: Opioid Treatment Agreement: No documentation of signed opioid treatment agreement Measure #408: Opioid Therapy Follow-up Evaluation: Patient had NO f/u eval minimum every 3 months during opioid therapy Measure #317: Preventitive Care & Scrn High Bld Press & F/U: Pre-hypertensive or hypertensive BP documented, pt will f/u with PCP Measure #128: Body Mass Index (BMI) Screening & Follow-up: BMI documented ABOVE normal parameters - f/u documented Measure #131: Pain Assessment & Follow-up: Pain positive & plan documented, Follow-up scheduled Measure #431: Unhealthy Alcohol Use Preventative Care & Scrn: Patient not i dentified as an unhealthy alcohol user PQRS Narrative: Smoking Status Smoker, status unknown Blood Pressure 142/100 Pain Intensity [Left Groin] 9 Scale Used Numeric (1 - 10) Hx Alcohol Use (MH) No Home Medications: Ambulatory Orders Acetaminophen [Tylenol] 325 - 650 mg PO Q4H PRN 06/13/18 Vitamin B-1 (Unknown Dose) 1 tab PO DAILY 06/13/18 Docusate [Colace] 100 mg PO BID #20 capsule 06/19/18
== END ==
LOC: PNWHC3 12:45
PROVIDERS: ATTEND Specialist
DX: G89.29 Other chronic pain (principal); R10.32 Left lower quadrant pain; Z79.899 Other long term (current) drug therapy; Z88.5 Allergy status to narcotic agent
CPT/HCPCS: 99211

== ENCOUNTER 2019-03-11 07:19 | Day surgery (SDC) | payer MEDICARE, OTHER ==
[2019-03-09 16:18] VITALS: BMI 28.8
[~2019-03-11 07:19] MED LIST changes: -DEXAMETHASONE SOD PHOSPHATE 10 MG/ML 1 ML VIAL IV ONE; -HEPARIN SODIUM,PORCINE 5,000 UNIT/ML 1 ML VIAL SQ ONE; -LIDOCAINE 1% 20 ML VIAL (10MG/ML) FOR IV START INTRADERMA PRN; -ONDANSETRON 4 MG/2 ML VIAL IVP ONE; -SCOPOLAMINE 1.5MG/72HR PATCH TRANSDERM ONE; -ceFAZolin IN SWFI 2 GM/20 ML SYRINGE IVP ONE; -fentaNYL (PF) 50 MCG/ML 2 ML AMP IV PRN
[2019-03-11 07:39] VITALS: RESP 16; TEMP 98
[2019-03-11] MEDS ORDERED: IV FLUID CONTINUATION 750 ML IV ONE (09:01)
[2019-03-11 09:17] VITALS: BP 110/75; PULSE 77
--- NOTE | 2019-03-11 09:22 | P.PCN ---
Date of Procedure: 03/11/19 Procedure(s) Performed: Procedure= left genitofemoral nerve block with steroid injection under ultrasound guidance (Ultrasound image stored on file in the patient's chart ) Preoperative diagnosis= left genitofemoral neuralgia Postoperative diagnosis= left genitofemoral neuralgia Complication = none Condition= stable Anesthesia= moderate sedation with intravenous Versed 2 mg , and fentanyl 100 micrograms. Indication for the procedure= patient complaining of left groin pain , and his headachewith left genitofemoral nerve neuralgia and is here to have the block Description of the procedure= procedure risk and benefits discussed with the patient, including but not limited, risk of infection and bleeding, and ALLERGIC reaction to the medication and not complete pain relief and patient agreed with the preceding patient taken to the operating room, placed in supine position or standard monitors applied to the patient then after induction of anesthesia back prepped with chlorhexidine 3 times , Then under strict sterile technique, using ultrasound machine, the location of the left genitofemoral nerve identified and then local infiltration of the skin and subcu interstitial with ropivacaine 0.5% one then 20-gauge PUJUNK needle advanced slowly under fluoroscopy and placed next to the genitofemoral nerve then after negative aspiration ropivacaine 0.5% 10 ML mixed with 40 mg of Depo- Medrol injected after negative aspiration patient tolerated the procedure well without any complication ,there was no paresthesia during the injection, patient taken to recovery room, and he discharged home in stable condition and he will follow up in the pain clinic in a few weeks
== END 2019-03-11 09:35 | disposition home or self-care (01) ==
LOC: ORPAIN 07:19
PROVIDERS: ATTEND Specialist
DX: G89.29 Other chronic pain (principal); G58.8 Other specified mononeuropathies; R10.32 Left lower quadrant pain; M54.9 Dorsalgia, unspecified; L71.9 Rosacea, unspecified; F17.210 Nicotine dependence, cigarettes, uncomplicated; Z87.39 Personal history of other diseases of the musculoskeletal system and connective tissue; Z87.2 Personal history of diseases of the skin and subcutaneous tissue; Z98.890 Other specified postprocedural states; Z86.14 Personal history of Methicillin resistant Staphylococcus aureus infection; Z98.1 Arthrodesis status; Z79.899 Other long term (current) drug therapy; Z88.5 Allergy status to narcotic agent; Z80.9 Family history of malignant neoplasm, unspecified
CPT/HCPCS: 64450; J2250; J1030; J3010; 99152

== ENCOUNTER → 2019-03-19 | Outpatient (CLI) | payer MEDICARE, OTHER ==
[2019-03-19 11:38] VITALS: BP 115/79; PULSE 81; RESP 16
--- NOTE | 2019-03-19 16:36 | P.PAINPG ---
Subjective Progress Note Date: 03/19/19 This is a follow-up visit for this 53 year old male with a chronic history of severe left groin pain, patient reports that he had robotic hernia repair on the left side, and he continued to have severe left-sided groin pain, and in June 2018 he had open left sided hernia repair, and he continued to have pain after the surgery, the pain is constant localized in the left groin. Above the testicle, it occasionally radiates to left anterior thigh , not radiated to the abdomen, he denies any fever or night sweats, he denies any redness or discharge from the groin, he denies any motor or sensory deficit, he feels his pain is localized in one spot with a diameter around 2 inches. he underwent a genitofemoral nerve block on 03/11/2019, he reports that this procedure did not help him at all, and in fact was in more pain following the procedure. He returns today to discuss alternative options. Physical exam: Vitals: Reviewed in EMR GENERAL: Well appearing, in no acute distress PSYCH: Mood and affect is appropriate. Awake, alert, and oriented SKIN: Skin color, texture, turgor normal, no rashes or lesions HEENT: Normocephalic, atraumatic. EOM intact CV: No pedal edema RESP: Respirations are unlabored, no audible wheezing GI: Abdomen non-distended MUSCULOSKELETAL: Extremities:left sided Blanca and FADIR test is positive for left-sided groin pain Gait: Gait is normal NEUR: No loss of sensation is noted. Assessment and Plan Plan: Assessment and plan= left inguinodynia, likely due to scar tissue and or neuroma formation Patient had no benefit from left genitofemoral nerve block under ultrasound guided, today we discussed proceeding with ilioinguinal nerve block on the left side under ultrasound guidance, patient would like to try this. I also asked the patient to discuss starting a neuropathic pain medication such as gabapentin with his primary care physician We will obtain left-sided hip x-ray to evaluate for arthritis as this could be contributing to left-sided groin pain follow-up: For above-mentioned procedure PQRS Measure Charge Sheet Measure #130: Documentation of Current Meds in Medical Chart: Patient's medications documented in chart Measure #226: Tobacco Use: Screen & Cessation Intervention: Pt screened for tobacco use AND intervention given Measure #111: Pneumonia Vaccination: Pneumococcal vaccine NOT administered or previously given Measure #47: Advance Care Plan: Advance care planning discussed & documented, pt chose/unable to give Measure #412: Opioid Treatment Agreement: No documentation of signed opioid treatment agreement Measure #408: Opioid Therapy Follow-up Evaluation: Patient had NO f/u eval minimum every 3 months during opioid therapy Measure #317: Preventitive Care & Scrn High Bld Press & F/U: normal blood pressure, follow-up not required Measure #128: Body Mass Index (BMI) Screening & Follow-up: BMI documented ABOVE normal parameters - f/u documented Measure #131: Pain Assessment & Follow-up: Pain positive & plan documented, Follow-up scheduled Measure #431: Unhealthy Alcohol Use Preventative Care & Scrn: Patient not identified as an unhealthy alcohol user Objective - Vital Signs Vital signs: Vital Signs Temp Pulse 81 03/19/19 11:36 Resp 16 03/19/19 11:36 BP 115/79 03/19/19 11:36 Pulse Ox Intake & Output 03/18/19 03/19/19 03/19/19 18:59 06:59 18:59 Weight 86.183 kg PQRS Measure Charge Sheet PQRS Narrative: Smoking Status Current every day smoker Blood Pressure 115/79 Pain Intensity [Left Groin] 8 Scale Used Numeric (1 - 10) Hx Alcohol Use (MH) No Home Medications: Ambulatory Orders Docusate [Colace] 100 mg PO DAILY 03/09/19 Vitamin B Complex 1 each PO DAILY 03/09/19 Controlled Substance Measures - Controlled Substance Measures Is patient prescribed a controlled substance at discharge?: No
== END | disposition home or self-care (01) ==
LOC: PNWHC3 11:25
PROVIDERS: ATTEND Anesthesiology
DX: G89.29 Other chronic pain (principal); R10.30 Lower abdominal pain, unspecified; F17.200 Nicotine dependence, unspecified, uncomplicated; Z79.899 Other long term (current) drug therapy
CPT/HCPCS: 99211

== ENCOUNTER 2019-03-25 07:06 | Day surgery (SDC) | payer MEDICARE, OTHER ==
[2019-03-18 11:52] VITALS: BMI 28.0
[2019-03-25 07:33] VITALS: TEMP 97.4
[2019-03-25] MEDS ORDERED: LIDOCAINE 1% 20 ML VIAL (10MG/ML) FOR IV START INTRADERMA ONE (07:35)
--- NOTE | 2019-03-25 08:30 | P.PCN ---
Date of Procedure: 03/25/19 Procedure(s) Performed: Procedure= left ilioinguinal nerve block with steroid injection under ultrasound guidance (Ultrasound image stored on file in the patient's chart ) Preoperative diagnosis= left ilioinguinal &genitofemoral neuralgia Postoperative diagnosis= left ilioinguinal & genitofemoral neuralgia Complication = none Condition= stable Anesthesia= moderate sedation with intravenous Versed 2 mg , and fentanyl 100 micrograms. Indication for the procedure= patient complaining of left groin pain , and his headachewith left genitofemoral nerve neuralgia and is here to have the block Description of the procedure= procedure risk and benefits discussed with the patient, including but not limited, risk of infection and bleeding, and ALLERGIC reaction to the medication and not complete pain relief and patient agreed with the preceding patient taken to the operating room, placed in supine position or standard monitors applied to the patient then after induction of anesthesia back prepped with chlorhexidine 3 times , Then under strict sterile technique, using ultrasound machine, the location of the left ilioinguinal nerve identified and then local infiltration of the skin and subcu interstitial with ropivacaine 0.5% one then 20-gauge PUJUNK needle advanced slowly under fluoroscopy and placed next to the ilioinguinal nerve then after negative aspiration ropivacaine 0.5% 10 ML mixed with 80 mg of Depo-Medrol injected after negative aspiration patient tolerated the procedure well without any complication ,there was no paresthesia during the injection, patient taken to recovery room, and he discharged home in stable condition and he will follow up in the pain clinic in a few weeks
[2019-03-25] MEDS ORDERED: IV FLUID CONTINUATION 1,000 ML IV ONE ×2 (08:33)
[2019-03-25 08:38] VITALS: RESP 18
[2019-03-25 08:54] VITALS: BP 110/74; PULSE 70
== END 2019-03-25 09:04 | disposition home or self-care (01) ==
LOC: ORPAIN 07:06
PROVIDERS: ATTEND Specialist
DX: G89.29 Other chronic pain (principal); G58.8 Other specified mononeuropathies; R51 Headache; F17.200 Nicotine dependence, unspecified, uncomplicated; Z98.890 Other specified postprocedural states; Z79.899 Other long term (current) drug therapy; Z88.5 Allergy status to narcotic agent
CPT/HCPCS: 64425; J2250; J1030; J3010; 99152

== ENCOUNTER → 2024-06-30 | Outpatient (CLI) | payer MEDICARE, OTHER ==
--- NOTE | 2024-06-30 08:22 | US ---
EXAMINATION TYPE: US liver DATE OF EXAM: 06/30/2024 COMPARISON: CT() CLINICAL INDICATION: Male, 59 years old with history of K76.9 LIVER DISEASE, UNSPECIFIED; TECHNIQUE: Grayscale and color Doppler imaging of the right upper quadrant. FINDINGS: EXAM MEASUREMENTS: Liver Length: 20.1 cm Gallbladder Wall: 0.5 cm CBD: 0.5 cm, color Doppler imaging was utilized to isolate the common bile duct for measurement. Right Kidney: 11.6x5.2x5.7 cm DISPENSARY TECHNICIAN NOTES: very limited scan due to pt body habitus and overlying bowel Pancreas: Obscured by bowel gas Liver: Increased attenuation, decreased visualization of vessels suggestive of fatty infiltrate sabine y difficult to penetrate, Enlarged: 20.1cm Gallbladder: ? multiple echogenic foci seen w/ ring down artifact within GB wall ?thickened irregular wall: 0.5cm ?Hypoechoic area seen adj to GB within Lt lobe: 2.4x1.2x2.0cm Evidence for sonographic Quesada's sign: No CBD: wnl Right Kidney: No hydronephrosis or masses seen Suboptimal evaluation of the pancreas. Visualized liver is markedly heterogeneously hyperechoic. Eval uation for focal masses suboptimal due to the heterogeneity. No ascites is seen. Hepatomegaly is note d. Gallbladder poorly distended with ringdown artifact in the gallbladder wall consistent with choles terolosis. Wall is thickened up to 5 mm. No pericholecystic fluid. No internal mobile shadowing galls tones. No right-sided hydronephrosis. IMPRESSION: Hepatomegaly with marked diffuse fatty infiltrative hepatocellular disease. No biliary di latation or ascites. Cholesterolosis of the gallbladder wall is noted. [facility], , 06/30/2024 8:19 AM
== END | disposition home or self-care (01) ==
LOC: RADUSWWP 07:14
PROVIDERS: ATTEND Family Medicine Addiction Medicine
DX: K76.0 Fatty (change of) liver, not elsewhere classified (principal); K76.9 Liver disease, unspecified; R16.0 Hepatomegaly, not elsewhere classified; K82.4 Cholesterolosis of gallbladder
CPT/HCPCS: 76705